=== PATIENT | male | born 1975 ===

== ENCOUNTER 2017-01-09 22:37 | Emergency (ER) | payer SELFPAY ==
[2017-01-09 22:49] VITALS: BP 160/82; PULSE 92; TEMP 98.5; O2SAT 100
[2017-01-09 23:52] VITALS: RESP 17
[2017-01-09 23:53] LABS: BASO % 0.4 % (0.0-2.0); EOS # 0.1 K/uL (0.0-0.7); EOS % 1.4 % (0.0-4.0); HEMOGLOBIN 14.3 g/dL (12.0-18.0); LYMPH # 1.2 K/uL (1.0-4.3); LYMPH % 13.4 % (20.0-40.0); MEAN CORPUSCULAR HEMOGLOBIN 33.6 pg (27.0-31.0); MEAN CORPUSCULAR HGB CONC 34.3 g/dL (33.0-37.0); MEAN PLATELET VOLUME 7.9 fl (7.2-11.7); MONO # 0.7 K/uL (0.0-0.8); MONO % 7.5 % (0.0-10.0); NEUT # 6.8 K/uL (1.8-7.0); NEUT % 77.3 % (50.0-75.0); NRBC % 0.1 % (0.0-0.0); RBC 4.27 Mil/uL (4.40-5.90); RED CELL DISTRIBUTION WIDTH 12.6 % (11.5-14.5); WHITE BLOOD COUNT 8.8 K/uL (4.8-10.8)
--- NOTE | 2017-01-09 23:53 | ED PDOC ---
HPI: General Adult Time Seen by Provider: 01/09/17 23:02 Chief Complaint (Nursing): Shortness Of Breath History Per: Patient Additional Complaint(s): Pt. states earlier this evening while he was sitting down eating he developed SOB. Reports feeling as if he unable to take a deep breath. He decided to go outside to get fresh air and while outside and breathing heavily he developed b/ l numbness to both arms. Pt. does admit to feeling anxious for the past several days as he is very busy at work and is very stressed out. Denies hemoptysis, palpitations, hemoptysis, hx of DVT/PE, leg pain, calf pain, trauma, fever. Past Medical History Reviewed: Historical Data, Nursing Documentation, Vital Signs Vital Signs: Last Vital Signs Temp 98.5 F 01/09/17 22:46 Pulse 92 H 01/09/17 22:46 Resp 17 01/09/17 23:51 BP 160/82 H 01/09/17 22:46 Pulse Ox 100 01/09/17 23:54 - Family History Family History: States: No Known Family Hx - Social History Current smoker - smoking cessation education provided: Yes SMOKER/PACKS PER DAY:: 1 - Allergies Allergies/Adverse Reactions: Allergies Allergy/AdvReac Type Severity Reaction Status Date / Time No Known Allergies Allergy Verified 01/09/17 22:46 Review of Systems ROS Statement: Except As Marked, All Systems Reviewed And Found Negative Physical Exam - Reviewed Nursing Documentation Reviewed: Yes Vital Signs Reviewed: Yes - Physical Exam Appears: Positive for: Well, Non-toxic, No Acute Distress Head Exam: Positive for: ATRAUMATIC, NORMAL INSPECTION, NORMOCEPHALIC Skin: Positive for: Normal Color, Warm. Negative for: Rash Eye Exam: Positive for: EOMI, Normal appearance, PERRL ENT: Positive for: Normal ENT Inspection Neck: Positive for: Normal, Painless ROM Cardiovascular/Chest: Positive for: Regular Rate, Rhythm, Chest Non Tender. Negative for: Bradycardia, Tachycardia Respiratory: Positive for: Normal Breath Sounds. Negative for: Wheezing, Respiratory Distress Gastrointestinal/Abdominal: Positive for: Normal Exam, Bowel Sounds, Soft. Negative for: Tenderness Back: Positive for: Normal Inspection. Negative for: L CVA Tenderness, R CVA Tenderness Extremity: Positive for: Normal ROM Neurologic/Psych: Positive for: Alert, Oriented - Laboratory Results Result Diagrams: 01/09/17 23:51 01/09/17 23:51 - ECG ECG: Positive for: Interpreted By Me ECG Rhythm: Positive for: Sinus Rhythm. Negative for: ST/T Changes O2 Sat by Pulse Oximetry: 100 - Radiology X-Ray: Interpreted by Me (CXR) X-Ray Interpretation: No Acute Disease - Progress ED Course And Treament: Labs ordered. Ativan 1mg PO given. Re-evaluation Time: 00:59 (Reports good relief of symptoms. Denies chest pain, SOB, palpitations, SI/HI. ) Condition: Re-examined, Improved Disposition - Clinical Impression Clinical Impression: Anxiety - Patient ED Disposition Is Patient to be Admitted: No - Disposition Referrals: [facility] [Outside] Disposition: Routine/Home Disposition Time: 01:00 Condition: IMPROVED Instructions: Anxiety (ED) Forms: [facility] ED School/Work Excuse Print Language: [place]
[2017-01-10 00:06] LABS: ALB/GLOB RATIO 1.7 (1.0-2.1); ALBUMIN 4.5 g/dL (3.5-5.0); ALT/SGPT 88 U/L (21-72); AST/SGOT 57 U/L (17-59); BLOOD UREA NITROGEN 16 mg/dl (9-20); CALCIUM 9.5 mg/dL (8.4-10.2); GFR AFRICAN-AMERICAN > 60; GFR NON-AFRICAN AMERICAN > 60
--- NOTE | 2017-01-10 08:58 | CARD ---
APPROVED REPORT EKG Measurement Heart [id number] <Conclusion> Normal sinus rhythm Possible Left atrial enlargement Borderline ECG
--- NOTE | 2017-01-10 10:05 | RAD ---
HISTORY: cough COMPARISON: No prior. TECHNIQUE: Chest PA and lateral FINDINGS: LUNGS: No focal consolidation. There is a faint elliptical shaped density right lateral mid-upper lung field located between the right posterior 6th and 7th ribs that could represent overlying artifact however possibility of a pleural based on density cannot be excluded. Recommend followup nonemergent CT scan of the chest. PLEURA: No significant pleural effusion identified. No pneumothorax apparent. CARDIOVASCULAR: Normal. OSSEOUS STRUCTURES: Minor multilevel degenerative spondylosis of the thoracic spine. Probable old healed fracture deformities of the left posterolateral 5th and 6th ribs. . VISUALIZED UPPER ABDOMEN: Normal. OTHER FINDINGS: None. IMPRESSION: No focal consolidation. There is a faint elliptical shaped density right lateral mid-upper lung field located between the right posterior 6th and 7th ribs that could represent overlying artifact however possibility of a pleural based on density cannot be excluded. Recommend followup nonemergent CT scan of the chest. Old healed left-sided rib fracture deformities as above. Note this report was placed in PA review folder for followup.
== END 2017-01-10 01:17 | disposition home or self-care (01) ==
LOC: H.ER 22:37
DX: F41.9 Anxiety disorder, unspecified (principal); R20.2 Paresthesia of skin